=== PATIENT | female | born 1995 | race Caucasian/White ===

== ENCOUNTER 2017-10-24 09:23 | Emergency (ER) | payer OTHER ==
[2017-10-24] MEDS ORDERED: Ondansetron HCl/PF 4 MG/2 ML Vial ONE (09:47)
[2017-10-24 10:12] LABS: #Lymphocytes 0.3 thou/uL (1.20-3.40); #Monocytes 0.5 thou/uL (0.11-0.59); #Neutrophils 9.9 thou/uL (1.40-6.50); %Basophils 0.3 % (0.0-1.0); %Monocytes 4.4 % (0.0-10.0); %Neutrophils 92.3 % (42.0-75.0); Mean Corpuscular HGB CONC 34.6 g/dL (32.0-36.0); Mean Corpuscular Hemoglobin 27.6 pg (27.0-31.0); Mean Corpuscular Volume 79.8 fL (78.0-98.0); Mean Platelet Volume 7.8 fL (7.4-10.4); Platelet Count 135 thou/uL (130-400); RBC Distribution Width 10.5 % (11.5-14.5); Red Blood Cell (RBC) Count 4.71 mill/uL (4.20-5.40); White Blood Cell (WBC) Count 10.7 thou/uL (4.8-10.8)
[2017-10-24 10:13] LABS: BHCG - Serum Negative (NEGATIVE); Pregs Control Background? CLEAR/WHITE (CLR/WHITE); Pregs Control Bar Appear? YES (CONTROL BAR)
[2017-10-24 10:15] LABS: ALT (SGPT) 30 U/L (8-55); AST (SGOT) 19 U/L (5-34); Albumin 4.2 g/dL (3.5-5.0); Alkaline Phosphatase 73 U/L (40-150); Anion Gap 16 mmol/L (10-20); BUN (Urea Nitrogen) 9 mg/dL (7.0-18.7); Bilirubin, Total 2.4 mg/dL (0.2-1.2); Calc. Creatinine Clearance 0 mL/min (70-130); Calcium 9.8 mg/dL (7.8-10.44); Carbon Dioxide 18 mmol/L (22-29); Chloride 107 mmol/L (98-107); Estimated GFR-MDRD Greater than 90; Globulin 2.8 g/dL (2.4-3.5); Glucose 96 mg/dL (70-105); Potassium 3.7 mmol/L (3.5-5.1); Sodium 137 mmol/L (136-145)
[2017-10-24 10:29] LABS: Bilirubin Small (Negative); Blood, Urine Negative (Negative); Clarity Clear (Clear); Glucose, Urine (Dipstick) Negative (Negative); Leukocyte Negative (Negative); Nitrite Negative (Negative); Protein, Urine (Dipstick) 100 mg/dL (Neg-Trace)
[2017-10-24] MEDS ORDERED: Dexamethasone 10 MG/ML VIAL ONE (10:29)
[2017-10-24 10:40] LABS: Bacteria/HPF Rare-Few HPF (None Seen); Hyaline Casts/LPF NONE SEEN LPF (0-3 Hyaline); RBC/HPF 0-3 HPF (0-3); Squamous Epithelial 0-3 HPF (0-3); WBC/HPF 0-3 HPF (0-3)
== END 2017-10-24 10:59 | disposition home or self-care (01) ==
LOC: SCSER 09:23
DX: E86.0 Dehydration (principal); J02.9 Acute pharyngitis, unspecified; R11.2 Nausea with vomiting, unspecified; F41.9 Anxiety disorder, unspecified; Z79.899 Other long term (current) drug therapy
CPT/HCPCS: 80053; 81003; 81015; 84703; 85025; 96374; 96375; J1100; J2405

== ENCOUNTER 2017-11-05 04:00 | Emergency (ER) | payer OTHER ==
[2017-11-05] MEDS ORDERED: Ondansetron HCl/PF 4 MG/2 ML Vial ONE (04:13)
[2017-11-05] MEDS ORDERED: Lorazepam 2 MG/ML VIAL ONE (04:30)
[2017-11-05 04:44] LABS: #Lymphocytes 1.5 thou/uL (1.20-3.40); #Monocytes 0.4 thou/uL (0.11-0.59); #Neutrophils 8.2 thou/uL (1.40-6.50); %Basophils 0.4 % (0.0-1.0); %Lymphocytes 14.7 % (21.0-51.0); %Monocytes 3.8 % (0.0-10.0); Hemoglobin 14.5 g/dL (12.0-16.0); Mean Corpuscular HGB CONC 35.1 g/dL (32.0-36.0); Mean Corpuscular Hemoglobin 28.4 pg (27.0-31.0); Mean Corpuscular Volume 80.9 fL (78.0-98.0); Mean Platelet Volume 6.9 fL (7.4-10.4); Platelet Count 326 thou/uL (130-400); RBC Distribution Width 10.3 % (11.5-14.5); Red Blood Cell (RBC) Count 5.13 mill/uL (4.20-5.40); White Blood Cell (WBC) Count 10.2 thou/uL (4.8-10.8)
[2017-11-05 04:45] LABS: BHCG - Serum Negative (NEGATIVE); Pregs Control Background? CLEAR/WHITE (CLR/WHITE); Pregs Control Bar Appear? YES (CONTROL BAR)
[2017-11-05 04:55] LABS: ALT (SGPT) 48 U/L (8-55); AST (SGOT) 22 U/L (5-34); Albumin 4.9 g/dL (3.5-5.0); Alkaline Phosphatase 82 U/L (40-150); Anion Gap 21 mmol/L (10-20); BUN (Urea Nitrogen) 14 mg/dL (7.0-18.7); Bilirubin, Total 2.6 mg/dL (0.2-1.2); Calc. Creatinine Clearance 0 mL/min (70-130); Calcium 10.5 mg/dL (7.8-10.44); Carbon Dioxide 15 mmol/L (22-29); Chloride 107 mmol/L (98-107); Estimated GFR-MDRD Greater than 90; Globulin 3.2 g/dL (2.4-3.5); Glucose 115 mg/dL (70-105); Lipase 28 U/L (8-78); Potassium 3.7 mmol/L (3.5-5.1); Protein, Total 8.1 g/dL (6.0-8.3); Sodium 139 mmol/L (136-145)
[2017-11-05 05:16] LABS: Bilirubin Small (Negative); Blood, Urine Negative (Negative); Clarity Clear (Clear); Glucose, Urine (Dipstick) Negative (Negative); Leukocyte Negative (Negative); Nitrite Negative (Negative); Protein, Urine (Dipstick) 30 mg/dL (Neg-Trace); Urobilinogen 0.2 mg/dL (0.2-1.0); pH, Urine 8.5 (5.0-9.0)
[2017-11-05 05:17] LABS: Bacteria/HPF 1+ HPF (None Seen); Hyaline Casts/LPF 0-3 HYALINE CAST LPF (0-3 Hyaline); RBC/HPF 0-3 HPF (0-3); Squamous Epithelial 0-3 HPF (0-3); WBC/HPF 0-3 HPF (0-3)
== END 2017-11-05 05:26 | disposition home or self-care (01) ==
LOC: SCSER 04:00
DX: F41.0 Panic disorder [episodic paroxysmal anxiety] (principal); R11.2 Nausea with vomiting, unspecified; Z79.01 Long term (current) use of anticoagulants; Z79.899 Other long term (current) drug therapy
CPT/HCPCS: 80053; 81003; 81015; 83690; 84703; 85025; 96361; 96374; 96375; J2060; J2405

== ENCOUNTER 2017-11-06 09:50 | Emergency (ER) | payer OTHER ==
[2017-11-06] MEDS ORDERED: Promethazine HCl 25 MG/ML VIAL ONE (10:09)
[2017-11-06] MEDS ORDERED: Ondansetron HCl/PF 4 MG/2 ML Vial ONE (10:42)
[2017-11-06] MEDS ORDERED: Lorazepam 2 MG/ML VIAL ONE (10:52)
== END 2017-11-06 12:45 | disposition home or self-care (01) ==
LOC: SCSER 09:50
DX: F41.9 Anxiety disorder, unspecified (principal); Z79.01 Long term (current) use of anticoagulants; Z79.899 Other long term (current) drug therapy
CPT/HCPCS: 96361; 96365; 96375; J2060; J2405; J2550

== ENCOUNTER 2018-06-06 20:09 | Observation (INO) | payer OTHER ==
[2018-06-06] MEDS ORDERED: Promethazine HCl 25 MG/ML VIAL ONE (20:16)
[2018-06-06] MEDS ORDERED: Lorazepam 2 MG/ML VIAL ONE (20:28)
[2018-06-06 22:56] LABS: BHCG - Serum Negative (NEGATIVE); Pregs Control Background? CLEAR/WHITE (CLR/WHITE); Pregs Control Bar Appear? YES (CONTROL BAR)
[2018-06-06 23:03] LABS: ALT (SGPT) 19 U/L (8-55); AST (SGOT) 18 U/L (5-34); Albumin 4.6 g/dL (3.5-5.0); Alkaline Phosphatase 72 U/L (40-150); Anion Gap 19 mmol/L (10-20); BUN (Urea Nitrogen) 13 mg/dL (7.0-18.7); Bilirubin, Total 0.7 mg/dL (0.2-1.2); Calc. Creatinine Clearance 0 mL/min (70-130); Calcium 9.5 mg/dL (7.8-10.44); Carbon Dioxide 15 mmol/L (22-29); Chloride 108 mmol/L (98-107); Estimated GFR-MDRD Greater than 90; Globulin 2.3 g/dL (2.4-3.5); Glucose 116 mg/dL (70-105); Lipase 19 U/L (8-78); Potassium 3.2 mmol/L (3.5-5.1); Protein, Total 6.9 g/dL (6.0-8.3); Sodium 139 mmol/L (136-145)
[2018-06-06 23:43] LABS: #Lymphocytes 1.4 thou/uL (1.20-3.40); #Monocytes 0.5 thou/uL (0.11-0.59); #Neutrophils 10.1 thou/uL (1.40-6.50); %Basophils 0.3 % (0.0-1.0); %Eosinophils 0.1 % (0.0-10.0); %Lymphocytes 11.8 % (21.0-51.0); %Monocytes 4.1 % (0.0-10.0); %Neutrophils 83.7 % (42.0-75.0); Hemoglobin 12.9 g/dL (12.0-16.0); Mean Corpuscular HGB CONC 34.5 g/dL (32.0-36.0); Mean Corpuscular Volume 81.2 fL (78.0-98.0); Mean Platelet Volume 7.8 fL (7.4-10.4); Platelet Count 222 thou/uL (130-400); RBC Distribution Width 11.1 % (11.5-14.5); Red Blood Cell (RBC) Count 4.61 mill/uL (4.20-5.40); White Blood Cell (WBC) Count 12.1 thou/uL (4.8-10.8)
[2018-06-07] MEDS ORDERED: Ondansetron PF 4 MG/2 ML Vial ONE ×2 (00:11→02:21)
[2018-06-07] MEDS ORDERED: Famotidine/PF 20 mg/2ml Vial ONE (00:11)
[2018-06-07 00:44] LABS: Bilirubin Negative (Negative); Blood, Urine Small (Negative); Clarity Clear (Clear); Glucose, Urine (Dipstick) Negative (Negative); Leukocyte Negative (Negative); Nitrite Negative (Negative); Protein, Urine (Dipstick) Negative (Neg-Trace); Specific Gravity, Urine 1.015 (1.005-1.030); Urobilinogen 0.2 mg/dL (0.2-1.0)
[2018-06-07 00:54] LABS: Bacteria/HPF 2+ HPF (None Seen); Hyaline Casts/LPF NONE SEEN LPF (0-3 Hyaline); RBC/HPF 0-3 HPF (0-3); Squamous Epithelial 0-3 HPF (0-3); WBC/HPF 0-3 HPF (0-3)
[2018-06-07 00:57] LABS: Amphetamine Not Detected (NotDetected); Barbiturates Screen Not Detected (NotDetected); Benzodiazepine Screen Not Detected (NotDetected); Cocaine Metabolite Screen Not Detected (NotDetected); Medtox Control Line Valid? VALID (VALID); Methadone Not Detected (NotDetected); Methamphetamine Not Detected (NotDetected); Opiate Screen Not Detected (NotDetected); Oxycodone Screen Not Detected (NotDetected); Phencyclidine (PCP) Not Detected (NotDetected); THC/Cannabinoid Screen Detected (NotDetected); Tricyclic Screen Not Detected (NotDetected)
[2018-06-07 01:31] LABS: #Monocytes 0.4 thou/uL (0.11-0.59); #Neutrophils 9.2 thou/uL (1.40-6.50); %Basophils 0.4 % (0.0-1.0); %Lymphocytes 9.2 % (21.0-51.0); %Monocytes 3.3 % (0.0-10.0); %Neutrophils 87.1 % (42.0-75.0); Hemoglobin 11.9 g/dL (12.0-16.0); Mean Corpuscular HGB CONC 34.8 g/dL (32.0-36.0); Mean Corpuscular Hemoglobin 28.6 pg (27.0-31.0); Mean Corpuscular Volume 82.2 fL (78.0-98.0); Mean Platelet Volume 7.6 fL (7.4-10.4); Platelet Count 174 thou/uL (130-400); Red Blood Cell (RBC) Count 4.16 mill/uL (4.20-5.40); White Blood Cell (WBC) Count 10.6 thou/uL (4.8-10.8)
[2018-06-07 01:37] LABS: Lactic Acid 3.2 mmol/L (0.5-2.2)
[2018-06-07 01:45] LABS: Anion Gap 16 mmol/L (10-20); BUN (Urea Nitrogen) 10 mg/dL (7.0-18.7); Calc. Creatinine Clearance 0 mL/min (70-130); Calcium 8.7 mg/dL (7.8-10.44); Carbon Dioxide 14 mmol/L (22-29); Chloride 110 mmol/L (98-107); Estimated GFR-MDRD Greater than 90; Glucose 95 mg/dL (70-105); Potassium 3.2 mmol/L (3.5-5.1); Sodium 137 mmol/L (136-145)
[2018-06-07] MEDS ORDERED: Lorazepam 2 MG/ML VIAL ONE (02:21)
[2018-06-07 03:31] VITALS: BMI 22.1
[2018-06-07] MEDS ORDERED: Promethazine HCl 25 MG in Sodium Chloride 0.9% 50 ML IVPB PRN (03:32)
[2018-06-07] MEDS ORDERED: Ondansetron PF 4 MG/2 ML Vial IVP PRN (03:32)
[2018-06-07] MEDS ORDERED: Acetaminophen 325 MG TAB PO PRN (04:20)
[2018-06-07] MEDS ORDERED: Sodium Chloride 0.9% 1,000 ML IV SCH (04:30)
--- NOTE | 2018-06-07 05:51 | HP ---
CHIEF COMPLAINT: Panic attack and vomiting. HISTORY OF PRESENT ILLNESS: This patient is a 22-year-old female, who reports a history of severe panic attack pathology since the age of 11. The patient developed an episode of this today and as per her usual course, reported significant vomiting. She has medications that she takes at home including lorazepam and Zyprexa, which she tried to take at the onset of her symptoms, but she believes that she vomited those. She ultimately presented to the [facility] Emergency Department. There, the patient was noted to have some waxing and waning evidence of anxiety and at times was putting her finger down her throat in order to gag herself to induce vomiting. The patient had some workup there, which revealed a white count of 12.1, potassium was 3.2, CO2 was 15, and lactic acid was 3.0. She also had cannabis on her drug screen. The patient did admit to using that daily. She felt better at one point and was very eager to go home. However, she was convinced to wait. Repeat labs, when those were obtained, her lactic acid level actually went up to 3.2, and she was amenable to staying for further treatment and evaluation. While there, the patient did receive 2 L of lactated Ringer's, 2 L of normal saline, IV ondansetron, IV Ativan, IV Pepcid. Repeat ondansetron and Ativan and then Phenergan IM. Currently, the patient feels like she is starting to settle down a bit, but reports that she is generally very sleepy. REVIEW OF SYSTEMS: All systems reviewed. Otherwise, all pertinent positives and negatives noted in the history of present illness. PAST MEDICAL HISTORY: Only for the anxiety and panic attacks noted above. PAST SURGICAL HISTORY: Rodeo tooth extraction. FAMILY HISTORY: Negative. SOCIAL HISTORY: The patient is from [place]. She is here as a student. She drinks socially and uses marijuana daily. Full code. Mother is her surrogate. ALLERGIES: NONE. HOME MEDICATIONS: 1. Duloxetine 60 mg daily. 2. Desvenlafaxine 100 mg daily. 3. Hormone control pill 1 p.o. daily. 4. Lorazepam 2 mg b.i.d. 5. Aldactone 150 mg daily. 6. Zyprexa 2.5 mg daily p.r.n. PHYSICAL EXAMINATION: VITAL SIGNS: Temperature 98.1, pulse 72, respirations 22, O2 sat 99% on room air, and blood pressure 121/76. GENERAL APPEARANCE: Age-appropriate female. She is a bit somnolent, will awaken and converse. HEENT: PERRL. No OP lesions. HEART: Regular rate and rhythm without murmurs. LUNGS: Clear bilaterally. No wheezes or rales. ABDOMEN: Soft, nontender, and nondistended. Positive bowel sounds. No masses. No organomegaly. EXTREMITIES: No cyanosis, clubbing, or edema. LABORATORY DATA: Repeated labs, white count is 10.6, hemoglobin 11.9, and platelets 174. Sodium 137, potassium 3.2, chloride 110, CO2 is 14, and the repeat lactic acid was 3.2. IMPRESSION AND PLAN: 1. Acute panic attack. The patient has received IV Ativan and Phenergan, seems to be settling down. 2. Nausea and vomiting as a consequence of her severe panic attack and anxiety. She has received multiple antiemetics. She has p.r.n. antiemetics ordered. It appears that she has improved somewhat. 3. Lactic acidosis. The etiology is not clear but is likely due to some probable hyperventilation and a catecholamine surge, which should be improving. She has had adequate hydration. We will continue with some IV fluids and recheck. 4. Hypokalemia. We will give her some oral repletion as soon as she is able to tolerate it. 5. Metabolic acidosis secondary to lactic acid. 6. Daily marijuana abuse. The patient was counseled by the ER physician regarding the fact that her symptoms could be some manifestation of hyperemesis, cannabis. However, the patient is adamant that her symptoms started well before she started the use of the marijuana. Job ID: [id number]
[2018-06-07] MEDS ORDERED: Lorazepam 1 MG TAB PO PRN ×2 (06:19→06:32)
[2018-06-07 08:30] LABS: #Monocytes 0.2 thou/uL (0.11-0.59); %Basophils 0.3 % (0.0-1.0); %Lymphocytes 11.7 % (21.0-51.0); %Monocytes 2.4 % (0.0-10.0); %Neutrophils 85.5 % (42.0-75.0); Hemoglobin 12.3 g/dL (12.0-16.0); Mean Corpuscular HGB CONC 33.2 g/dL (32.0-36.0); Mean Corpuscular Volume 84.2 fL (78.0-98.0); Mean Platelet Volume 7.9 fL (7.4-10.4); Platelet Count 202 thou/uL (130-400); RBC Distribution Width 11.2 % (11.5-14.5); Red Blood Cell (RBC) Count 4.38 mill/uL (4.20-5.40); White Blood Cell (WBC) Count 8.1 thou/uL (4.8-10.8)
[2018-06-07 08:42] LABS: Lactic Acid 0.8 mmol/L (0.5-2.2)
[2018-06-07 08:47] LABS: Anion Gap 14 mmol/L (10-20); BUN (Urea Nitrogen) 7 mg/dL (7.0-18.7); Calc. Creatinine Clearance 151 mL/min (70-130); Calcium 8.8 mg/dL (7.8-10.44); Carbon Dioxide 18 mmol/L (22-29); Chloride 105 mmol/L (98-107); Estimated GFR-MDRD Greater than 90; Glucose 101 mg/dL (70-105); Potassium 3.4 mmol/L (3.5-5.1); Sodium 134 mmol/L (136-145)
[2018-06-07] MEDS ORDERED: Ondansetron ODT 4 MG TAB PO PRN (09:15)
[2018-06-07 15:34] VITALS: BP 121/79; TEMP 98.3
--- NOTE | 2018-06-08 06:30 | DIS ---
DATE OF ADMISSION: 06/07/2018 DATE OF DISCHARGE: 06/07/2018 ALLERGIES: NO KNOWN DRUG ALLERGIES. CHIEF COMPLAINT: Panic attack, nausea and vomiting. FINAL DIAGNOSES: 1. Profuse nausea and vomiting in the setting of acute panic attack with resulting lactic acidosis, resolved. 2. Lactic acidosis with initial level of 3.2, now normalized at 0.8. 3. Mild hypokalemia. 4. Generalized anxiety disorder with associated panic attacks, managed by her psychiatrist in [place]. PROCEDURES PERFORMED: None. LABORATORY RESULTS: White blood cell count 8.1, hemoglobin 12.3, hematocrit 36.9, platelets are 202. Sodium 134, potassium 3.4, chloride 105, anion gap 14, BUN 7, creatinine 0.65, GFR greater than 90, lactic acid 0.8, glucose 101, calcium 8.8. Tox screen positive for cannabinoids. Urinalysis negative for UTI. IMAGING RESULTS: None. CONSULTATIONS: None. PHYSICAL EXAMINATION: VITAL SIGNS: 121/79, pulse is 90, O2 saturation is 99% on room air, temperature is 98.3. HOSPITAL COURSE: The patient is a 22-year-old female with past medical history significant for a generalized anxiety disorder with associated panic attacks, who developed an episode yesterday, similar to her previous episodes of panic, which resulted in prolific vomiting. She did try to take her p.r.n. lorazepam and Zyprexa, but believes that she vomited them. She presented to the [facility] Emergency Department for further workup and treatment. She continued to have some waxing and waning anxiety along with forced emesis when she would try to gag herself. Workup at that facility included a white count of 12.1, potassium 3.2, CO2 of 15. Lactic acid was three. She also had positive cannabis on her drug screen, which she does admit to using daily. Repeat labs revealed a lactic acid of 3.2, so she agreed for further treatment. She received 2 L of lactated Ringer's, 2 L normal saline, IV Zofran, IV Ativan, IV Pepcid, and IM Phenergan. This afternoon upon my interview, the patient feels well. Her lactic acid trended down to 0.8. Her hypokalemia is improved. She has no further nausea or vomiting and feels that her panic and anxiety have resolved. PHYSICAL EXAMINATION: GENERAL: This is a well-appearing female, in no acute distress. HEENT: Atraumatic and normocephalic. Extraocular eye movements intact. NECK: Supple. No lymphadenopathy. No JVD. RESPIRATORY: Regular respiratory rate and pattern. Clear to auscultation bilaterally. No rhonchi or wheezes. CARDIOVASCULAR: S1, S2. Regular rate and rhythm. No appreciable murmurs, rubs or gallops. GASTROINTESTINAL: Soft, nontender, normal bowel sounds. EXTREMITIES: Peripheral vascular, no lower extremity pitting edema. +2 DP pulses bilaterally. MUSCULOSKELETAL: No joint effusion or swelling. NEUROLOGIC: Cranial nerves 2 through 12 are intact. No focal deficits. SKIN: Warm and dry. No skin discoloration. CONDITION AT DISCHARGE: Stable. DISCHARGE MEDICATIONS: 1. Desvenlafaxine succinate 100 mg tablet extended release 1 tablet daily. 2. Duloxetine 60 mg tab daily. 3. Norethindrone estradiol control 1 tablet daily. 4. Zyprexa 2.5 mg daily p.r.n. 5. Spironolactone 150 mg p.o. daily. NEW MEDICATIONS: Will be a trial of p.r.n. Xanax for acute panic attacks, and she will be given Zofran ODT 4 mg p.o. q.6 hours p.r.n. for nausea. DISCHARGE DISPOSITION: Home. PLAN: I had a lengthy conversation with the patient and her mother regarding triggers for panic and ways to alleviate triggers, including regular healthy diet and exercise. She will follow up with her psychiatrist in [place]. The patient does have some stressors as she will graduate in a few weeks and is awaiting admission to graduate schools. At this time, her presenting symptoms have all resolved, and she will be discharged home in good condition. Job ID: [id number]
== END 2018-06-07 15:52 | disposition home or self-care (01) ==
LOC: SCSER 20:09 → T4-A 06-07 02:00
PROVIDERS: ADMIT Internal Medicine; ATTEND Internal Medicine
DX: F41.0 Panic disorder [episodic paroxysmal anxiety] (principal); F41.1 Generalized anxiety disorder; R11.2 Nausea with vomiting, unspecified; E87.6 Hypokalemia; E87.2 Acidosis; F12.10 Cannabis abuse, uncomplicated; Z79.899 Other long term (current) drug therapy
CPT/HCPCS: 36415; 80048; 80053; 80306; 81003; 81015; 83605; 83690; 84703; 85025; 96361; 96372; 96374; 96375; 96376; 99406; G0378; J2060; J2405; J2550; Q0162; S0028